=== PATIENT | male | born 2000 | race Caucasian/White ===

== ENCOUNTER → 2020-03-12 | Outpatient (CLI) | payer OTHER ==
[~2020-03-12] MED LIST: Amoxicillin500 MG PO; CODACEE120 PO; Cortisporin Ear10 ML RIGHTEAR; ONDA4ODT MM
== END | disposition home or self-care (01) ==
LOC: LAB SHORT 14:48 → PLD 14:48
DX: B34.9 Viral infection, unspecified (principal)
CPT/HCPCS: 87081